=== PATIENT | female | born 1990 | race Caucasian/White ===

== ENCOUNTER 2018-04-06 06:39 | Day surgery (SDC) | payer BC, OTHER ==
[2018-04-06] MEDS ORDERED: TORADOL PO (09:50)
[2018-04-06 10:22] VITALS: BP 110/69
== END 2018-04-06 10:45 | disposition home or self-care (01) | DRG 419 ==
LOC: ORM 06:39
PROVIDERS: ATTEND Surgery
PROC: 0FT44ZZ Resection of Gallbladder, Percutaneous Endoscopic Approach (ICD-10-PCS; principal; 2018-04-06)
DX: K80.10 Calculus of gallbladder with chronic cholecystitis without obstruction (principal)
CPT/HCPCS: J2270; J2710; Q9967